=== PATIENT | female | born 1940 | race Caucasian/White ===

== ENCOUNTER 2019-03-06 10:44 | Emergency (ER) | payer OTHER, MEDICARE ==
--- NOTE | 2019-03-06 10:52 | PDOC ---
History of Present Illness - General Stated Complaint: WEAKNESS Time Seen by Provider: 03/06/19 10:46 - History of Present Illness Initial Comments: 78 year old female with PMH of hiatal hernia and positional vertigo presenting with palpitations since 8 AM this morning when waking up. States that she slept well and followed her regular routine yesterday evening. She woke up and states that she felt "off" and checked her pulse which she timed at higher than 120 BPM. She stood up and began to feel slightly light headed and short of breath but not vertiginous. She was afraid that she would fall so she sat down and called EMS. She was still able to walk around, make breakfast, and answer the door for EMS. However, she still feels "off". She drinks two glasses of wine a night, does not smoke, and does not drink caffeine. She had similar symptoms one year prior and was found to be dehydrated. She was told that she was anemic when she was a young. She denies taking any new OTC, herbal medicines, or prescribed medications recently. Denies chest pain, bleeding from any orifice, nausea, vomiting, diarrhea, fevers, chills, headaches, syncope, or other symptoms. 03/06/19 10:46 Past History - Past Medical History Allergies/Adverse Reactions: Allergies Allergy/AdvReac Type Severity Reaction Status Date / Time Penicillins Allergy Hives Verified 03/06/19 11:15 Home Medications: Ambulatory Orders NK [No Known Home Medication] 03/06/19 Anemia: No Asthma: No Cancer: No Cardiac Disorders: No CVA: No COPD: No CHF: No Dementia: No Diabetes: No GI Disorders: Yes (HIATAL HERNIA GERD) HTN: No Hypercholesterolemia: No Liver Disease: No Seizures: No Thyroid Disease: Yes (VERTIGO POSITIONAL) - Surgical History Orthopedic Surgery: Yes (rt foot sx) - Psycho Social/Smoking Cessation Hx Smoking Status: No Smoking History: Former smoker Have you smoked in the past 12 months: No Number of Cigarettes Smoked Daily: 0 If you are a former smoker, when did you quit?: 50 y ago Hx Alcohol Use: Yes Drug/Substance Use Hx: No Substance Use Type: None Review of Systems - Review of Systems Constitutional: No: Chills, Diaphoresis, Fever HEENTM: No: Blurred Vision, Tearing Respiratory: Yes: Shortness of Breath. No: Cough Cardiac (ROS): Yes: Lightheadedness, Palpitations. No: Chest Pain, Irregular Heart Rate ABD/GI: No: Diarrhea, Nausea, Vomiting : No: Dysuria, Discharge Musculoskeletal: No: Back Pain, Joint Pain Integumentary: No: Bruising, Erythema, Flushing Neurological: Yes: Other (vertigo). No: Headache, Numbness, Paresthesia Psychiatric: No: Anxiety, Depression Endocrine: No: Flushing, Intolerance to Cold, Increased Thirst Hematologic/Lymphatic: Yes: Anemia. No: Blood Clots, Easy Bleeding, Easy Bruising, Bleeding Diathesis, Lymph Node Abnormalities *Physical Exam - Physical Exam General Appearance: Yes: Nourished, Appropriately Dressed. No: Apparent Distress HEENT: positive: EOMI, GALLO, Normal Voice. negative: Normal ENT Inspection ( dry mucus membranes) Neck: positive: Trachea midline, Normal Thyroid, Supple. negative: Tender, Rigid Respiratory/Chest: positive: Lungs Clear, Normal Breath Sounds. negative: Chest Tender, Respiratory Distress, Accessory Muscle Use Cardiovascular: positive: Regular Rhythm, Regular Rate Gastrointestinal/Abdominal: positive: Normal Bowel Sounds, Flat, Soft. negative : Tender Lymphatic: negative: Adenopathy, Tenderness Musculoskeletal: positive: Normal Inspection. negative: Decreased Range of Motion Extremity: positive: Normal Capillary Refill, Normal Inspection, Normal Range of Motion. negative: Tender Integumentary: positive: Normal Color, Dry, Warm Neurologic: positive: Fully Oriented, Alert, Normal Mood/Affect, Normal Response , Motor Strength 5/5 ED Treatment Course - LABORATORY CBC & Chemistry Diagram: 03/06/19 11:00 03/06/19 11:00 Medical Decision Making - Medical Decision Making 78 year old female with history hiatal hernia and positional vertigo presenting with palpitations since waking up in the morning. EKG demonstrating rate of 78 , KS 148, QRS 84, left axis, downard QRS complexes in II, III, and V3, TWI in V1 /V2 and no sign of afib, geminy, conduction delay, or potential reentrant cardiopathalogy. Orthostatics were positive and mucous membranes dry corroborating orthostatic hypotension. Labs WNL, including TSH/ T4, troponin negative, and patient much improved after 1 L NS. Patient otherwise stable, ambulatory, and well appearing. Will DC patient with cardiology follow up for possible halter monitor placement or other workup. 03/06/19 10:49 Discharge - Discharge Information Problems reviewed: Yes Clinical Impression/Diagnosis: Palpitations Condition: Improved Disposition: HOME - Admission No - Follow up/Referral Referrals: Dannie Ayoub MD [Primary Care Provider] - - Patient Discharge Instructions Patient Printed Discharge Instructions: DI for Orthostatic Hypotension Additional Instructions: Please stay well hydrated at home as this was the most likely cause for your symptoms this morning. Please follow up with your ground hand within a week for further workup and evaluation. He may want to place a monitor on your heart or may decide that this is also more likely due to dehydration. Please return to the ED if you have new or worsening symptoms. - Post Discharge Activity
[2019-03-06 11:12] VITALS: TEMP 97.9; BMI 22.1
--- NOTE | 2019-03-06 11:17 | PDOC ---
Attending Attestation - Resident Resident Name: Radha Nguyễn - ED Attending Attestation I have performed the following: I have examined & evaluated the patient, The case was reviewed & discussed with the resident, I agree w/resident's findings & plan, Exceptions are as noted
[2019-03-06] MEDS ORDERED: SODIUM CHLORIDE 0.9% 500 ML INFUS.BAG IV ONE ×2 (11:23→12:13)
[2019-03-06 11:41] LABS: BASO % 1.3 % (0-2.0); EOS % 1.1 % (0-4.5); HEMATOCRIT 42.9 % (32.4-45.2); HEMOGLOBIN 14.3 GM/dL (10.7-15.3); LYMPH % 30.6 % (8-40); MCH 29.6 pg (25.7-33.7); MCHC 33.3 g/dl (32.0-36.0); MEAN PLT VOLUME 8.9 fl (7.5-11.1); MONO % 10.7 % (3.8-10.2); NEUT % 56.3 % (42.8-82.8); PLATELET COUNT 367 K/MM3 (134-434); RBC 4.82 M/mm3 (3.60-5.2); RDW 15.1 % (11.6-15.6); WHITE BLOOD COUNT 5.1 K/mm3 (4.0-10.0)
[2019-03-06 11:52] LABS: INR 0.97 (0.83-1.09); PROTHROMBIN TIME (PATIENT) 11.5 SEC (9.7-13.0)
[2019-03-06 11:55] LABS: ALBUMIN 3.9 g/dl (3.4-5.0); BILIRUBIN,TOTAL 0.6 mg/dL (0.2-1); BLOOD UREA NITROGEN 17.4 mg/dL (7-18); CALCIUM 9.3 mg/dL (8.5-10.1); POTASSIUM 3.7 mmol/L (3.5-5.1); TOT PROT 7.4 g/dl (6.4-8.2)
--- NOTE | 2019-03-06 12:40 | PDOC ---
Documentation entered by Beth Welch SCRIBE, acting as scribe for Vahid Sharpe MD. Vahid Sharpe MD: This documentation has been prepared by the Rebekah de jesus Xhesika, SCRIBE, under my direction and personally reviewed by me in its entirety. I confirm that the documentation accurately reflects all work, treatment, procedures, and medical decision making performed by me. Attending Attestation - Resident Resident Name: Radha Nguyễn - ED Attending Attestation I have performed the following: I have examined & evaluated the patient, The case was reviewed & discussed with the resident, I agree w/resident's findings & plan, Exceptions are as noted - HPI HPI: 03/06/19 11:37 The patient is a 78 year old female with a PMH of hiatal hernia and positional vertigo who presents to the ED for palpitations since this morning. Pt states she stood up this morning, felt lightheaded, so she sat down and called EMS. Pt states she was able to ambulate. Pt notes she was her normal self last night. Pt reports she drinks wine at night with her dinner. Pt notes she drinks roughly 6 glasses of water daily. Pt states she had similar symptoms one year prior, which was due to dehydrated. Pt denies any recent illness/sick contact. The patient denies chest pain, shortness of breath, and dizziness. Denies fever , chills, cough, nausea, vomiting, and constipation. Denies dysuria, frequency, urgency and hematuria. Allergy: Penicillins Social: Denies alcohol, cigarette or drug use. PCP: Dr. Ayoub Cards: Dr. Anirudh Souza - located in [place] ([phone]). - Physicial Exam PE: 03/06/19 11:39 Vitals: Triage Vital signs reviewed General Appearance: no acute distress, well nourished well developed, Neck: Supple;No Nuchal rigidity Chest Wall: Nontender Cardiac: Regular rate and rhythm, no murmurs, no rubs, no gallops, Lungs: Clear to auscultation bilateral, good air movement bilaterally, Abdomen: Soft, nondistended, normal bowel sounds, nontender to palpation Extremities: Full range of motion to all extremities, no cyanosis, clubbing, or edema Skin: Warm and dry, no rashes or lesions, no petechiae Neuro: AOX3; Cranial Nerves 2-12 grossly c intact, Strength intact to all extremities, Sensation intact to all extremities, gait normal Psych: normal mood, normal affect - Medical Decision Making 03/06/19 13:35 EKG demonstrates normal sinus rhythm no ST elevations no WPW Brugada Status post 2 L normal saline patient feels much better no longer with positional lightheadedness based on this normal labs normal EKG negative troponin history examination most consistent with dehydration and positional lightheadedness We will recommend hydration cardiology follow-up Findings, need for follow-up and strict return instructions discussed with patient.
--- NOTE | 2019-03-06 12:50 | EKG ---
Test Reason : Blood Pressure : / mmHG Vent. Rate : 078 BPM Atrial Rate : 078 BPM P-R Int : 148 ms QRS Dur : 084 ms QT Int : 404 ms P-R-T Axes : 080 -54 030 degrees QTc Int : 460 ms NORMAL SINUS RHYTHM POSSIBLE LEFT ATRIAL ENLARGEMENT LEFT ANTERIOR FASCICULAR BLOCK CANNOT RULE OUT INFERIOR INFARCT (MASKED BY FASCICULAR BLOCK?) , AGE UNDETERMINED POSSIBLE ANTERIOR INFARCT , AGE UNDETERMINED ABNORMAL ECG NO PREVIOUS ECGS AVAILABLE Confirmed by JOAQUÍN BRAGA MD ([id number]) on 03/06/2019 12:50:33 PM Referred By: Confirmed By:JOAQUÍN BRAGA MD
[2019-03-06 13:15] VITALS: BP 157/66; PULSE 62
== END 2019-03-06 13:19 | disposition home or self-care (01) ==
LOC: JER 10:44
DX: R00.2 Palpitations (principal); K21.9 Gastro-esophageal reflux disease without esophagitis; K44.9 Diaphragmatic hernia without obstruction or gangrene; Z88.0 Allergy status to penicillin; Z86.69 Personal history of other diseases of the nervous system and sense organs
CPT/HCPCS: 36415; 71045-TC-FY; 80053; 82550; 83880; 84439; 84443; 84484; 85025; 85610; 93005; 93010; 99284-25

== ENCOUNTER 2023-04-14 08:54 | Emergency (ER) | payer OTHER, MEDICARE ==
[2023-04-14 09:06] VITALS: TEMP 98.2; BMI 22.8
[2023-04-14 11:09] LABS: URINE APPEARANCE CLEAR; URINE BILIRUBIN NEGATIVE (NEGATIVE); URINE COLOR YELLOW; URINE GLUCOSE (UA) NEGATIVE (NEGATIVE); URINE KETONE NEGATIVE (NEGATIVE); URINE LEUK ESTERASE NEGATIVE (NEGATIVE); URINE NITRITE NEGATIVE (NEGATIVE); URINE PROTEIN NEGATIVE (NEGATIVE); URINE UROBILINOGEN 0.2 mg/dL (0.2-1.0)
[2023-04-14 12:26] LABS: BASO % 1.2 % (0-2.0); EOS % 0.2 % (0-4.5); HEMATOCRIT 41.9 % (32.4-45.2); MCH 29.7 pg (25.7-33.7); MCHC 33.5 g/dl (32.0-36.0); MEAN CELL VOLUME 88.5 fl (80-96); MONO % 9.8 % (3.8-10.2); NEUT % 68.8 % (42.8-82.8); PLATELET COUNT 367 10^3/uL (134-434); RBC 4.73 M/mm3 (3.60-5.2); RDW 15.3 % (11.6-15.6); WHITE BLOOD COUNT 6.8 K/mm3 (4.0-10.0)
[2023-04-14 13:00] LABS: CALCIUM 10.2 mg/dL (8.5-10.1)
[2023-04-14 13:01] LABS: ALBUMIN 3.7 g/dl (3.4-5.0); BLOOD UREA NITROGEN 18.9 mg/dL (7-18)
[2023-04-14 13:04] LABS: CREATININE 0.8 mg/dL (0.55-1.3)
[2023-04-14 13:06] LABS: BILIRUBIN,TOTAL 0.7 mg/dL (0.2-1); TOT PROT 7.7 g/dl (6.4-8.2)
[2023-04-14 13:09] LABS: N-TERMINAL BNP 499.8 pg/ml (5-450)
[2023-04-14 15:00] VITALS: BP 155/82; PULSE 72; RESP 16
== END 2023-04-14 15:00 | disposition home or self-care (01) ==
LOC: JER 08:54
DX: I10 Essential (primary) hypertension (principal)
CPT/HCPCS: 36415; 80053; 81003; 83880; 84484; 85025; 93005; 93010; 99284-25